=== PATIENT | male | born 1955 | race Caucasian/White ===

== ENCOUNTER 2017-07-03 14:36 | Observation (INO) | payer SELFPAY ==
[2017-07-03] MEDS ORDERED: SODIUM CHLORIDE 0.9% FLUSH 10 ML FLUSH IVF (15:00)
[2017-07-03 15:27] LABS: AUTOMATED NEUTROPHIL # 5.9 TH/MM3 (1.8-7.7); BASOPHIL # 0.1 TH/MM3 (0-0.2); BASOPHIL % 0.7 % (0.0-2.0); EOSINOPHIL # 0.3 TH/MM3 (0-0.4); EOSINOPHIL % 2.9 % (0.0-4.0); HEMATOCRIT 43.7 % (39.0-51.0); HEMOGLOBIN 16.1 GM/DL (13.0-17.0); LYMPH % 27.1 % (9.0-44.0); LYMPHOCYTE # 2.5 TH/MM3 (1.0-4.8); MEAN CELL VOLUME 91.2 FL (80.0-100.0); MEAN CORPUSCULAR HEMOGLOBIN 33.7 PG (27.0-34.0); MEAN PLATELET VOLUME 9.4 FL (7.0-11.0); MONO % 5.9 % (0.0-8.0); MONOCYTE # 0.5 TH/MM3 (0-0.9); NEUT % 63.4 % (16.0-70.0); PLATELET COUNT 183 TH/MM3 (150-450); RED BLOOD COUNT 4.79 MIL/MM3 (4.50-5.90); RED CELL DISTRIBUTION WIDTH 13.9 % (11.6-17.2); WHITE BLOOD COUNT 9.3 TH/MM3 (4.0-11.0)
[2017-07-03 15:33] LABS: HEMO FLAGS AUTO DIFF; MEAN CORPUSCULAR HGB CONC 36.9 % (32.0-36.0)
[2017-07-03 15:35] LABS: APTT (PATIENT) 25.2 SEC (24.3-30.1); PROTHROMBIN TIME - PATIENT 10.1 SEC (9.8-11.6)
[2017-07-03 16:20] LABS: BANDS 2 % (0-6); EOSINOPHILS 3 % (0-4); LYMPHOCYTES 12 % (9-44); NEUTROPHIL # MANUAL DIFF 7.9 TH/MM3 (1.8-7.7); POLYS (SEG NEUTROPHILS) 83 % (16-70); WBC DIFF SAMPLE 100
[2017-07-03 16:21] LABS: SCAN/DIFF FINAL DIFF MANUAL
[2017-07-03 16:22] LABS: PLATELET ESTIMATE SMEAR NORMAL (NORMAL); PLATELET MORPHOLOGY NORMAL (NORMAL); TOXIC VACUOLATION PRESENT (NONE SEEN)
[2017-07-03] MEDS: NITROGLYCERIN 0.4 MG SL 25 TABS/BTL SL (16:35)
[2017-07-03 17:33] LABS: ALKALINE PHOSPHATASE 117 U/L (45-117); TOTAL BILIRUBIN ADULT 0.5 MG/DL (0.2-1.0); TROPONIN I LESS THAN 0.02 NG/ML (0.02-0.05)
[2017-07-03 17:51] LABS: ALBUMIN 3.5 GM/DL (3.4-5.0); ANION GAP 11 MEQ/L (5-15); BICARBONATE 20.8 MEQ/L (21.0-32.0); BLOOD UREA NITROGEN 13 MG/DL (7-18); CALCIUM 8.6 MG/DL (8.5-10.1); CHLORIDE 106 MEQ/L (98-107); CREATININE 1.34 MG/DL (0.60-1.30); GLOMERULAR FILTRATION RATE 54 ML/MIN (>89); GLUCOSE,RANDOM 111 MG/DL (74-106); LIPASE 203 U/L (73-393); MAGNESIUM 2.2 MG/DL (1.5-2.5); SODIUM (NA) 138 MEQ/L (136-145)
[2017-07-03 17:52] LABS: TOTAL PROTEIN 7.2 GM/DL (6.4-8.2)
[2017-07-03 17:53] LABS: POTASSIUM 4.3 MEQ/L (3.5-5.1)
[2017-07-03 18:17] LABS: ALT (GPT) 24 U/L (12-78); AST (GOT) 28 U/L (15-37)
[2017-07-03] MEDS ORDERED: SODIUM CHLORIDE 0.9% FLUSH 10 ML FLUSH IV FLUSH (18:45)
[2017-07-03] MEDS: SODIUM CHLORIDE 0.9% FLUSH 10 ML FLUSH IV FLUSH (21:32)
[2017-07-03 22:50] LABS: TROPONIN I LESS THAN 0.02 NG/ML (0.02-0.05)
[2017-07-03 22:51] LABS: CREATINE KINASE 82 U/L (39-308)
[2017-07-04 00:20] LABS: TROPONIN I LESS THAN 0.02 NG/ML (0.02-0.05)
[2017-07-04 00:21] LABS: CREATINE KINASE 87 U/L (39-308)
[2017-07-04] MEDS: SODIUM CHLORIDE 0.9% FLUSH 10 ML FLUSH IV FLUSH (08:45)
[2017-07-04] MEDS: REGADENOSON INJ 0.4 MG/5 ML SYR (09:50)
== END 2017-07-04 13:34 | disposition home or self-care (01) ==
LOC: NEPE 14:36 → NEDA 18:36 → NEPHCDU 19:45
DX: R07.89 Other chest pain (principal); I25.10 Atherosclerotic heart disease of native coronary artery without angina pectoris; E78.5 Hyperlipidemia, unspecified; I10 Essential (primary) hypertension; E11.9 Type 2 diabetes mellitus without complications; R11.0 Nausea; J44.9 Chronic obstructive pulmonary disease, unspecified; R61 Generalized hyperhidrosis; G62.9 Polyneuropathy, unspecified; E78.00 Pure hypercholesterolemia, unspecified; Z91.19 Patient's noncompliance with other medical treatment and regimen
CPT/HCPCS: 71045; 78452; 80053; 82550; 83690; 83735; 84484; 85007; 85027; 85610; 85730; 93005; 93017; 99285

== ENCOUNTER 2017-12-06 22:35 | Observation (INO) ==
[2018-01-10 12:19] VITALS: BP_SYST 112; PULSE 77; RESP 18; O2SAT 95
== END 2017-12-07 12:17 | disposition home or self-care (01) ==
LOC: NEPFCDU 22:35
PROVIDERS: ADMIT Internal Medicine Cardiovascular Disease; ATTEND Internal Medicine Cardiovascular Disease